=== PATIENT | female | born 1965 | race Caucasian/White ===

== ENCOUNTER 2020-11-07 20:38 | Inpatient (IN) ==
[2020-11-07 22:03] LABS: ABS Lymphocytes 0.7 10^3/ul (1.0-4.8); ABS Monocytes 0.7 10^3/ul (0-0.8); ABS Neutrophils 6.6 10^3/ul (1.5-7.7); Eosinophil % 0.4 %; Hematocrit 28 % (35-47); Hemoglobin 9.7 g/dL (12.0-16.0); Lymphocyte % 9.2 %; Mean Corpuscular HGB Conc 35 g/dL (31-36); Mean Corpuscular Hemoglobin 31 pg (27-31); Mean Corpuscular Volume 90 fL (80-97); Mean Platelet Volume 8.3 fL (7.4-10.4); Platelet Count 245 10^3/uL (150-450); Red Blood Count 3.09 10^6 /uL (3.70-4.87); Red Cell Distribution Width 14 % (10-15); White Blood Count 8.1 10^3/uL (3.5-10.8)
[2020-11-07 22:14] LABS: Albumin 3.5 g/dL (3.2-5.2); Anion Gap 8 mmol/L (2-11); CO2 Carbon Dioxide 24 mmol/L (22-32); Calcium 8.7 mg/dL (8.6-10.3); Chloride 99 mmol/L (101-111); Potassium 3.9 mmol/L (3.5-5.0); Sodium 131 mmol/L (135-145)
[2020-11-07 22:20] LABS: ALT 14 U/L (7-52); AST 16 U/L (13-39); Albumin/Globulin Ratio 1.3 (1-3); Alkaline Phosphatase 74 U/L (35-149); Blood Urea Nitrogen 25 mg/dL (6-24); C Reactive Protein 50.28 mg/L (<8.01); EGFR African American 64.2 (>60); EGFR Non-African American 53.1 (>60); Globulin 2.7 g/dL (2-4); Glucose 181 mg/dL (70-100); Total Protein 6.2 g/dL (6.4-8.9)
[2020-11-07 22:54] LABS: Troponin I 0.03 ng/mL (<0.03)
[2020-11-07] MEDS ORDERED: cefTRIAXone 1 gm/50 mL NS BAG 1 GM/50 ML BAG IV ONE (23:34)
[2020-11-08] MEDS ORDERED: NS 0.9% 1000 ml BAG 2,000 ML IV ONE (01:09)
[2020-11-08 02:41] LABS: Troponin I 0.03 ng/mL (<0.03)
[2020-11-08 02:56] LABS: PCO2 Arterial 30 mmHg (35-45); PO2 Arterial 74 mmHg (80-100)
[2020-11-08] MEDS ORDERED: methylPREDNISolone 125 mg 2 ML VIAL IV ONE (03:51)
[2020-11-08] MEDS ORDERED: Dextrose 50% Syringe 50 ml 25 GM/50 ML SYRINGE IV PUSH PRN (05:14)
[2020-11-08] MEDS ORDERED: Lactated Ringers 1000 ml BAG 1,000 ML IV SCH (06:00)
[2020-11-08] MEDS ORDERED: Albuterol HFA INHALER 8 gm MDI INH PRN ×2 (06:11→06:35)
[2020-11-08 06:49] LABS: ABS Lymphocytes 0.3 10^3/ul (1.0-4.8); ABS Monocytes 0.6 10^3/ul (0-0.8); ABS Neutrophils 7.6 10^3/ul (1.5-7.7); Hematocrit 26 % (35-47); Hemoglobin 9.2 g/dL (12.0-16.0); Lymphocyte % 3.1 %; Mean Corpuscular HGB Conc 35 g/dL (31-36); Mean Corpuscular Hemoglobin 31 pg (27-31); Mean Corpuscular Volume 90 fL (80-97); Mean Platelet Volume 8.5 fL (7.4-10.4); Platelet Count 222 10^3/uL (150-450); Red Blood Count 2.92 10^6 /uL (3.70-4.87); Red Cell Distribution Width 14 % (10-15); White Blood Count 8.5 10^3/uL (3.5-10.8)
[2020-11-08 07:01] LABS: Calcium 7.9 mg/dL (8.6-10.3); Potassium 3.7 mmol/L (3.5-5.0)
[2020-11-08 07:07] LABS: EGFR African American 71.8 (>60); EGFR Non-African American 59.4 (>60)
[2020-11-08 07:25] LABS: Troponin I 0.03 ng/mL (<0.03)
[2020-11-08] MEDS: Aspirin EC 81 mg TAB.EC (enteric coated) PO SCH (08:16)
[2020-11-08] MEDS: Enoxaparin 40 MG/0.4 ML SYR SUBCUT SCH (08:21)
[2020-11-08] MEDS ORDERED: Iodixanol (CONTRAST) 320 MG/ML 100 ML SDV IV SCH (08:46)
[2020-11-08 10:15] LABS: Urine Appearance Cloudy; Urine Bilirubin Negative (Negative); Urine Blood 1+ (Negative); Urine Color Yellow; Urine Glucose 1+(50 mg/dL) (Negative); Urine Ketones 1+ (Negative); Urine Nitrite Negative (Negative); Urine Protein 3+(>=500 mg/dL) (Negative); Urine Specific Gravity 1.015 (1.002-1.030); Urine Urobilinogen Negative (Negative)
[2020-11-08] MEDS ORDERED: Insulin GLARGINE 100 un/ml 10 ml VIAL SUBCUT SCH (21:00)
[2020-11-08] MEDS ORDERED: cefTRIAXone 1 gm/50 mL NS BAG 1 GM/50 ML BAG IVPB SCH (21:00)
[2020-11-08] MEDS ORDERED: Azithromycin 500 mg/250 ml NS 500 MG/250 ML BAG IVPB SCH (21:00)
[2020-11-09 04:33] LABS: ABS Lymphocytes 0.6 10^3/ul (1.0-4.8); ABS Monocytes 0.8 10^3/ul (0-0.8); Hematocrit 25 % (35-47); Hemoglobin 8.6 g/dL (12.0-16.0); Lymphocyte % 6.2 %; Mean Corpuscular HGB Conc 35 g/dL (31-36); Mean Corpuscular Hemoglobin 32 pg (27-31); Mean Corpuscular Volume 90 fL (80-97); Platelet Count 225 10^3/uL (150-450); Red Blood Count 2.73 10^6 /uL (3.70-4.87); Red Cell Distribution Width 14 % (10-15); White Blood Count 9.4 10^3/uL (3.5-10.8)
[2020-11-09 04:54] LABS: Calcium 8.3 mg/dL (8.6-10.3); EGFR African American 51.4 (>60); EGFR Non-African American 42.5 (>60); Potassium 4.1 mmol/L (3.5-5.0)
[2020-11-09 08:00] LABS: Phosphorus 3.8 mg/dL (2.5-5.0)
[2020-11-09] MEDS ORDERED: Lactated Ringers 500 ml BAG 500 ML IV SCH (08:00)
[2020-11-09] MEDS: Aspirin EC 81 mg TAB.EC (enteric coated) PO SCH (08:57)
[2020-11-09] MEDS ORDERED: Insulin GLARGINE 100 un/ml 10 ml VIAL SUBCUT SCH ×3 (09:00→21:00)
[2020-11-09] MEDS: Enoxaparin 40 MG/0.4 ML SYR SUBCUT SCH (09:00)
[2020-11-09 14:06] LABS: % Iron Saturation 12 % (15-55); Iron 23 ug/dL (50-212); Total Iron Binding Capacity 196 mcg/dL (250-450); Transferrin 140 mg/dL (203-362); Unsaturated Iron Binding < 181 ug/dL
[2020-11-09 14:45] LABS: Ferritin 803.4 ng/mL (11-307)
[2020-11-09] MEDS ORDERED: Ondansetron ODT 4 mg TAB 4 MG TAB SL PRN (21:04)
[2020-11-10 05:29] LABS: ABS Lymphocytes 1.3 10^3/ul (1.0-4.8); ABS Monocytes 0.7 10^3/ul (0-0.8); ABS Neutrophils 5.3 10^3/ul (1.5-7.7); Eosinophil % 0.4 %; Hematocrit 24 % (35-47); Hemoglobin 8.3 g/dL (12.0-16.0); Lymphocyte % 18.1 %; Mean Corpuscular HGB Conc 35 g/dL (31-36); Mean Corpuscular Hemoglobin 32 pg (27-31); Mean Corpuscular Volume 89 fL (80-97); Mean Platelet Volume 9.1 fL (7.4-10.4); Platelet Count 242 10^3/uL (150-450); Red Blood Count 2.64 10^6 /uL (3.70-4.87); Red Cell Distribution Width 14 % (10-15); White Blood Count 7.3 10^3/uL (3.5-10.8)
[2020-11-10 05:49] LABS: Calcium 8.2 mg/dL (8.6-10.3); EGFR African American 48.4 (>60); Magnesium 2.2 mg/dL (1.9-2.7); Phosphorus 4.4 mg/dL (2.5-5.0); Potassium 3.7 mmol/L (3.5-5.0)
[2020-11-10] MEDS: Enoxaparin 40 MG/0.4 ML SYR SUBCUT SCH (09:54)
[2020-11-10] MEDS: Aspirin EC 81 mg TAB.EC (enteric coated) PO SCH (09:54)
[2020-11-10 11:54] VITALS: BP 111/58
== END 2020-11-10 17:50 | disposition home or self-care (01) | DRG 194 ==
LOC: ED 20:38 → MED 11-08 04:22 → ICU 11-08 06:45 → MED 11-09 15:07
PROVIDERS: ADMIT Pediatrics; ATTEND Internal Medicine